=== PATIENT | male | born 1995 | race Caucasian/White ===

== ENCOUNTER 2019-09-03 10:37 | Emergency (ER) | payer MEDICAID ==
[~2019-09-03] VITALS: Ht 180.3 cm; Wt 80.0 kg
[2019-09-03] MEDS ORDERED: SODIUM CHLORIDE 0.9% 1,000 ML IV ONE (11:10)
[2019-09-03] MEDS ORDERED: ONDANSETRON HCL 4MG/2ML INJ IV ONE (11:15)
[2019-09-03 12:39] LABS: BASOPHILS % 0.3 % (0.0-2.0); EOSINOPHILS % 1.1 % (0.0-5.0); HEMATOCRIT. 43.7 % (42.0-52.0); HEMOGLOBIN. 15.1 g/dL (14.0-18.0); MEAN CORPUSCULAR HEMOGLOBIN 30.9 pg (28.0-32.0); MEAN CORPUSCULAR VOLUME 89.3 fL (80.0-94.0); MEAN PLATELET VOLUME 7.6 fl (7.4-10.4); MONOCYTES % 8.6 % (2.0-8.0); PLATELET 266 x1000/uL (130-400); RED CELL DISTRIBUTION WIDTH 12.7 % (11.6-14.6)
[2019-09-03 12:47] LABS: CHLORIDE 106 mEq/L (98-107)
[2019-09-03 12:51] LABS: ETHANOL BLOOD < 10 mg/dL
[2019-09-03 13:19] LABS: CLARITY URINE CLOUDY (CLEAR); COLOR URINE YELLOW (YELLOW); KETONES URINE NEGATIVE (NEGATIVE); LEUKOCYTE ESTERASE URINE NEGATIVE (NEGATIVE); NITRITE URINE NEGATIVE (NEGATIVE); OCCULT BLOOD URINE NEGATIVE (NEGATIVE); PH URINE 5.5 (4.5-8.0); PROTEIN URINE NEGATIVE (NEGATIVE); SPECIFIC GRAVITY URINE 1.019 (1.005-1.030); UROBILINOGEN URINE 0.2 E.U./dL (0.2-1.0)
[2019-09-03 13:36] LABS: METHADONE URINE SCREEN NEGATIVE (NEGATIVE)
[2019-09-03 13:37] LABS: *AMPHETAMINES SCREEN URINE NEGATIVE (NEGATIVE); *BARBITURATES SCREEN URINE NEGATIVE (NEGATIVE); *BENZODIAZEPINES SCREEN URINE PRESUMTIVE POSITIVE (NEGATIVE); *COCAINE SCREEN URINE NEGATIVE (NEGATIVE); CANNABINOID URINE SCREEN PRESUMTIVE POSITIVE (NEGATIVE); OPIATES URINE SCREEN PRESUMTIVE POSITIVE (NEGATIVE); PHENCYCLIDINE URINE SCREEN NEGATIVE (NEGATIVE)
[2019-09-03 17:04] VITALS: BP 110/70
== END 2019-09-03 17:07 | disposition home or self-care (01) ==
LOC: ER 10:37
DX: T40.7X1A Poisoning by cannabis (derivatives), accidental (unintentional), initial encounter (principal); T42.4X1A Poisoning by benzodiazepines, accidental (unintentional), initial encounter; S09.8XXA Other specified injuries of head, initial encounter; G92 Toxic encephalopathy; Y92.148 Other place in prison as the place of occurrence of the external cause
CPT/HCPCS: 36415; 70450; 80053; 80305; 80307; 80320; 80329; 81003; 83735; 85025; 93005; 96374; 99284; J2405; J7030; G0480